=== PATIENT | male | born 1980 | race Caucasian/White ===

== ENCOUNTER 2018-01-02 14:26 | Emergency (ER) | payer OTHER ==
[~2018-01-02] VITALS: Ht 182.9 cm; Wt 123.9 kg
[2018-01-02 14:48] VITALS: BP 140/79
--- NOTE | 2018-01-02 14:52 | NUR ---
PER DR LIMON PT INSTRUCTED TO WAIT AT THE LOBBY
--- NOTE | 2018-01-02 16:07 | NUR ---
PT AMBULATED TO BED 10
--- NOTE | 2018-01-02 16:20 | NUR ---
37m bib self with c/o 2/10 constant left lower leg with swelling, edema, warmth and redness x 2 days. Circulation, Motor, and Sensation intact. Pt also reports of 8/10 constant mid forehead pain x 2 days. Pt sts taking motrin otc without relief. Pt is aox4 with steady gait. RR are even and unlabored. No acute distress at this time. Awaiting for er md mccray. Will continue to monitor.
[2018-01-02] MEDS ORDERED: KETOROLAC 60 MG/2 ML VIAL IM ONE (16:35)
--- NOTE | 2018-01-02 16:47 | NUR ---
us by bedside
--- NOTE | 2018-01-02 17:45 | NUR ---
Patient discharged with v/s stable. Written and verbal after care instructions given and explained. Patient alert, oriented and verbalized understanding of instructions. Ambulatory with steady gait. All questions addressed prior to discharge. ID band removed. Patient advised to follow up with PMD. Rx of Bactrim, Motrin, and Keflex given. Patient educated on indication of medication including possible reaction and side effects. Opportunity to ask questions provided and answered.
[2018-01-02 17:46] VITALS: BP 116/72
== END 2018-01-02 17:45 | disposition home or self-care (01) ==
LOC: MED 14:26
DX: L03.116 Cellulitis of left lower limb (principal); F17.210 Nicotine dependence, cigarettes, uncomplicated
CPT/HCPCS: 93971; 96372; 99284; J1885; Q0092

== ENCOUNTER 2018-08-06 23:27 | Emergency (ER) | payer OTHER ==
[~2018-08-06] VITALS: Ht 180.3 cm; Wt 97.5 kg
[2018-08-06 23:29] VITALS: BP 145/89
--- NOTE | 2018-08-06 23:34 | NUR ---
PT TAKEN TO BED 1
--- NOTE | 2018-08-06 23:35 | NUR ---
37/M CAME IN ED, C/O POSSIBLE CELLULITIS ON ANTERIOR LLE, X3 DAYS. PT STATED THAT HE HAD A SIMILAR CELLULITIS 4 MONTHS AGO THAT WAS TREATED WITH ABX. ANTERIOR LLE NOTED WITH SWELLING, APPROXIMATELY 8CM X 15CM SURROUNDING REDNESS, TENDER TO TOUCH, +CMS. PT DENIES FEVER, N/V. PT REPORTS CHRISTINA. DENIES HX, RX.
--- NOTE | 2018-08-07 00:18 | NUR ---
Dr. Terry evaluating patient at bedside.
[2018-08-07] MEDS ORDERED: KETOROLAC 30 MG/ML VIAL IVP ONE (00:25)
[2018-08-07] MEDS ORDERED: VANCOMYCIN PER PHARMACY MC PRN (00:25)
[2018-08-07] MEDS ORDERED: VANCOMYCIN 1GM/DEXT 5% PREMIX 200 ML IV ONE (00:25)
[2018-08-07] MEDS ORDERED: NACL 0.9% 500 ML IV ONE (00:25)
[2018-08-07] MEDS ORDERED: VANCOMYCIN 1,000 MG VIAL ONE (00:38)
[2018-08-07 02:59] VITALS: BP 148/90
--- NOTE | 2018-08-07 02:59 | NUR ---
Patient discharged with v/s stable. Written and verbal after care instructions given and explained. Patient alert, oriented and verbalized understanding of instructions. Ambulatory with steady gait. All questions addressed prior to discharge. ID band removed. Patient advised to follow up with PMD. Rx of MOTRIN, BACTRIM given. Patient educated on indication of medication including possible reaction and side effects. Opportunity to ask questions provided and answered.
== END 2018-08-07 02:59 | disposition home or self-care (01) ==
LOC: MED 23:27
DX: L03.116 Cellulitis of left lower limb (principal); R51 Headache
CPT/HCPCS: 96365; 96366; 96375; 99285; J1885; J3370; J7030; J7060; 96360; 96361

== ENCOUNTER 2018-12-02 22:19 | Emergency (ER) | payer OTHER ==
[~2018-12-02] VITALS: Ht 180.3 cm; Wt 98.9 kg
[2018-12-02 22:25] VITALS: BP 145/92
--- NOTE | 2018-12-02 22:30 | NUR ---
ASSUMED CARE OF PT AT THIS TIME. PT AMBULATORY TO BED 9 FROM ER LOBBY W/ STEADY GAIT. C/O RIGHT UPPER ABDOMINAL ABSCESS X 1 WEEK W/ PURULENT DRAINAGE NOTED. PT IS AAOX4; STATES PAIN OF 0/10; AND VSS. PATIENT POSITIONED FOR COMFORT; HOB ELEVATED; BEDRAILS UP X2; BED DOWN. ER MD MADE AWARE OF PT STATUS. WILL CONTINUE TO MONITOR.
--- NOTE | 2018-12-02 23:21 | NUR ---
Dr. Mandel evaluating patient at bedside.
[2018-12-02 23:30] VITALS: BP 138/91
--- NOTE | 2018-12-02 23:30 | NUR ---
Patient discharged with v/s stable. Written and verbal after care instructions given and explained. Patient alert, oriented and verbalized understanding of instructions. Ambulatory with steady gait. All questions addressed prior to discharge. ID band removed. Patient advised to follow up with PMD. Rx of BACTRIM AND TYLENOL given. Patient educated on indication of medication including possible reaction and side effects. Opportunity to ask questions provided and answered.
== END 2018-12-02 23:30 | disposition home or self-care (01) ==
LOC: MED 22:19
DX: L02.211 Cutaneous abscess of abdominal wall (principal)
CPT/HCPCS: 99283

== ENCOUNTER 2019-06-02 21:24 | Observation (INO) | payer OTHER ==
[~2019-06-02] VITALS: Ht 182.9 cm; Wt 97.5 kg
[2019-06-02 21:28] VITALS: BP 156/77
[2019-06-02] MEDS ORDERED: LIDOCAINE 1% 500 MG/50 ML VIAL INJ SCH (21:40)
[2019-06-02] MEDS ORDERED: KETOROLAC 60 MG/2 ML VIAL IM ONE (21:45)
--- NOTE | 2019-06-02 21:46 | NUR ---
38/M PRESENTED TO ER AMBULATORY. AWAKE AND ALERT. RIGHT UPPER CHEST ABSCESS. 10/10 PAIN. DID NOT TAKE ANY MEDS TO RELIEVE PAIN. NO RESP DISTRESS. EVEN UNLABORED BREATHING. STATES NO MEDICAL HISTORY. NO RX. CURRENT SMOKER. WILL CONTINUE TO MONITOR.
[2019-06-02] MEDS ORDERED: LIDOCAINE MPF 1% - 5 mL VIAL 0 ML ONE (21:54)
[2019-06-02] MEDS ORDERED: NACL 0.9% 1,000 ML IV SCH (22:29)
--- NOTE | 2019-06-02 22:33 | NUR ---
LAB AT BEDSIDE
--- NOTE | 2019-06-02 22:43 | NUR ---
X-Ray at bedside.
[2019-06-02] MEDS ORDERED: MORPHINE SULFATE 4 MG/ML SYR IVP PRN (22:50)
[2019-06-02] MEDS ORDERED: MORPHINE SULFATE 2 MG/ML SYR IVP PRN (22:50)
[2019-06-02] MEDS ORDERED: ZOLPIDEM 5 MG TAB PO PRN (22:50)
[2019-06-02] MEDS ORDERED: ONDANSETRON 4 MG/2 ML VIAL IVP PRN (22:50)
[2019-06-02] MEDS ORDERED: VANCOMYCIN 1,000 MG in DEXTROSE 5% 250 ML IV ONE (22:50)
[2019-06-02] MEDS ORDERED: LORazepam 2 MG/ML VIAL IVP PRN (22:50)
[2019-06-02] MEDS ORDERED: ACETAMINOPHEN 325 MG TAB PO PRN (22:50)
[2019-06-02 23:17] LABS: BASOPHILS % (AUTO) 0.3 % (0.0-2.0); EOSINOPHILS # (AUTO) 0.1 K/uL (0-0.4); EOSINOPHILS % (AUTO) 1.1 % (0.0-4.0); HEMATOCRIT 44.7 % (36-52); HEMOGLOBIN 15.1 g/dL (12.0-18.0); LYMPHOCYTES # (AUTO) 2.6 K/uL (2.0-11.5); LYMPHOCYTES % (AUTO) 21.3 % (20.5-51.1); MEAN CORPUSCULAR HEMOGLOBIN 30 pg (27-31); MEAN CORPUSCULAR HGB CONC 34 g/dL (33-37); MONOCYTES # (AUTO) 1.1 K/uL (0.8-1.0); NEUTROPHILS # (AUTO) 8.2 K/uL (1.8-7.7); NEUTROPHILS % (AUTO) 68.3 % (42.2-75.2); PLATELET COUNT (AUTO) 213 K/uL (140-450); RED BLOOD CELL COUNT(AUTO) 5.02 MIL/uL (4.20-6.10); RED CELL DISTRIBUTION WIDTH 13.1 % (11.6-13.7)
[2019-06-02 23:27] LABS: ANION GAP 7.4 (8-16); CARBON DIOXIDE 31.9 mmol/L (21-32); CREATININE 1.1 mg/dL (0.7-1.3); POTASSIUM 4.3 mmol/L (3.5-5.1)
[2019-06-02 23:33] LABS: ALBUMIN 3.7 g/dL (3.4-5.0); TOTAL BILIRUBIN 0.3 mg/dL (0.0-1.0)
[2019-06-02 23:37] LABS: PROTHROMBIN TIME 9.7 secs (10.8-13.4)
[2019-06-02] MEDS ORDERED: VANCOMYCIN 1,000 MG VIAL ONE (23:42)
--- NOTE | 2019-06-02 23:59 | NUR ---
RECEIVED FROM ER PER NETTIE AWAKE AND ALERT. ABLE TO VERBALIZE NEEDS WELL. NO SOB. DENIES PAIN AT THIS TIME. CALL LIGHT WITH IN REACH. REDNESS NOTED TO RIGHT UPPER CHEST. IV SITE # 20 TO RIGHT NECK. CARE PLANS FOR THE NIGHT DISCUSSED WITH HIM ORIENTED TO ROOM AND CARE GIVERS. ORIENTED X 4. ROM X 4.
[2019-06-03] MEDS ORDERED: AMPICILLIN/SULBACTAM 3 GM in NACL 0.9% 100 ML IV SCH ×2
[2019-06-03 00:10] VITALS: BP 156/77
--- NOTE | 2019-06-03 00:10 | NUR ---
Patient will be admitted to care of ROBLES WRIGHT DO. Admited to [facility]. Will go to room 125 B. Belongings list completed. Report to NOAH MENDOZA.
--- NOTE | 2019-06-03 00:14 | NUR ---
PT. AWAKE AND ALERT. MRSA NARES SWAB TAKEN. VANCOMYCIN IV INFUSING AT THIS TIME.
--- NOTE | 2019-06-03 01:24 | NUR ---
TALKED WITH MD WRIGHT RE: PT GOING AMA. AWARE AND STATED"OK" CHARGE NURSE AND IMAGING AIDE AWARE. TALKED WITH PT. PROS AND CONS. STILL WANTS TO GO HOME. "THIS IS NOTHING AND I DON'T NEED TO BE HERE" PT. WANTS PRESCRIPTION ONLY FOR ANTIBIOTICS. EXPLAINED WE CAN NOT AT THIS TIME UNLESS HE IS SEEN BY MD SYED.
--- NOTE | 2019-06-03 01:37 | NUR ---
PT. WALKED OUT IN A HURRY. REFUSED TO STAY INSPITE OF EXPLAINING PROS AND CONS. A/O X 4. ROM X 4. ALL BELONGINGS WITH PT. NOTHING LEFT BEHIND. AMA FORM SIGNED.
== END 2019-06-03 01:40 | disposition left against medical advice (07) ==
LOC: MED 21:24 → MMU 22:52 → MED 23:11
PROVIDERS: ADMIT Internal Medicine Pulmonary Disease; ATTEND Internal Medicine Pulmonary Disease
DX: J86.9 Pyothorax without fistula (principal)
CPT/HCPCS: 36415; 71045; 80053; 83605; 85025; 85610; 85730; 87040; 87081; 96365; 96372; 99285; G0378; J1885; J3370; J2001

== ENCOUNTER 2023-08-25 04:05 | Emergency (ER) | payer OTHER ==
[~2023-08-25] VITALS: Ht 180.3 cm; Wt 99.8 kg
[2023-08-25 04:20] VITALS: BP 157/86; PULSE 82; RESP 16; TEMP 98.4; O2SAT 100
[2023-08-25] MEDS ORDERED: diphenhydrAMINE 50 MG/ML VIAL IVP ONE (04:55)
[2023-08-25] MEDS ORDERED: PROCHLORPERAZINE 10 MG/2 ML VIAL IVP ONE (04:55)
[2023-08-25] MEDS ORDERED: NACL 0.9% 1,000 ML IV ONE (04:55)
[2023-08-25] MEDS ORDERED: KETOROLAC 30 MG/ML VIAL IVP ONE (04:55)
[2023-08-25] MEDS ORDERED: CEPH-588 PO (05:51)
[2023-08-25] MEDS ORDERED: IBUP-2218 PO (05:51)
[2023-08-25 06:51] VITALS: BP 141/78; PULSE 78; RESP 15; TEMP 98.1; O2SAT 98
== END 2023-08-25 06:51 | disposition home or self-care (01) ==
LOC: MED 04:05
DX: R51.9 Headache, unspecified (principal); L03.115 Cellulitis of right lower limb; Z79.899 Other long term (current) drug therapy
CPT/HCPCS: 96361; 96374; 96375; 99284; J0780; J1200; J1885; J7030